=== PATIENT | female | born 1950 | race Caucasian/White ===

== ENCOUNTER → 2016-10-23 | Day surgery (SDC) | payer MEDICARE, MEDICAID ==
[~2016-10-23] VITALS: Ht 167.6 cm; Wt 40.0 kg
[~2016-10-23] MED LIST: COMBIVENT RESPIM4 GM INH; DIOVAN160 MG PO; OXYGEN M-15 INH; PERCOCET 5-3251 EACH PO; SINGULAIR10 MG PO; STAY AWAKE200 MG PO; XANAX0.5 MG PO; ZENPEP DR 10,01 EACH PO; ZOCOR40 MG PO
--- NOTE | ~2016-10-23 | OR ---
PATIENT'S NAME: AMIRA ADDISON [facility] AGE: 66 Y [address] ROOM: [place] [address] LOCATION: GEND ADMIT DATE: 10/23/2016 OR/Procedure Report DISCHARGE DATE: FAMILY PHYSICIAN: Tay Paz ATTENDING PHYSICIAN: YUDY AVALOS SURGEON: Yudy Avalos MD DATE OF PROCEDURE: 10/23/2016 PROCEDURE AUCTIONEER TOBACCO: Roselia Cannon, spray technician. PROCEDURES PERFORMED: 1. Bronchoscopy with therapeutic aspiration of secretions. 2. Bronchoscopy with bronchial wash of the left lower lobe. 3. Bronchoscopy with bronchoalveolar lavage of the left lower lobe. INDICATIONS AND PREPROCEDURE DIAGNOSES: 1. Left lower lung atelectasis. 2. Recurrent episodes of pneumonia. 3. Chronic obstructive pulmonary disease. 4. Tobacco abuse. POSTPROCEDURE DIAGNOSES: 1. Left lower lung atelectasis due to mucus plugging. 2. Recurrent episodes of pneumonia. 3. Chronic obstructive pulmonary disease. 4. Tobacco abuse. CONSENT: Consent was obtained from the patient after all the indications, risks, benefits, and alternatives were explained at length. 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 Ellison. The patient could not travel to Dr. Ellison's office for the procedure, reason for which he asked me whether I could do it in our facility. I agreed, and the patient agreed to it., too She verbalized understanding and signed the informed consent. DESCRIPTION OF PROCEDURE: The patient was taken to the endoscopy suite where a laryngeal mask was placed by the anesthesia team uneventfully. The bronchoscope was advanced through the laryngeal mask and the airways were examined. FINDINGS: The vocal cords had normal appearance. There was a moderate amount of secretions in the right lower lobe with a small amount of secretions in the right upper lobe. The patient had evidence of very large amount of thick, light-yellow secretions in the left lower lobe. I performed a bronchial wash from that area. Afterwards, I performed aggressive suctioning of all the PATIENT'S NAME: AMIRA ADDISON [facility] AGE: 66 Y [address] ROOM: [place] [address] LOCATION: GEND ADMIT DATE: 10/23/2016 OR/Procedure Report DISCHARGE DATE: FAMILY PHYSICIAN: Tay Paz ATTENDING PHYSICIAN: YUDY AVALOS secretions using multiple saline aliquots. In the left lower lobe, she had secretions down to the sub-, subsegmental level. There was no evidence of any endobronchial lesions in both bronchial trees. She had some airway anatomy distortion in the left lower lobe which raised the possibility of extrinsic compression. This could be related to lung atelectasis as well. Afterwards I performed a bronchoalveolar lavage in the left lower lobe. 60 mL of sterile saline were instilled, with return of 20 mL of cloudy, slightly purulent material. At the end of the procedure, there was no evidence of active bleeding or any mucus in the airways. The bronchoscope was withdrawn, and the patient was returned to the anesthesia team for further management. COMPLICATIONS: None. ESTIMATED BLOOD LOSS: None. SPECIMENS: The bronchoalveolar lavage will be sent for microbiology and cytology studies, and the bronchial wash will be sent for microbiology studies. MD CODY FLORES/modl /[id number] d: 10/23/16 1319 t: 10/26/16 1245, OPERATIVE SUMMARY
== END | disposition disaster alternative care site (69) ==
LOC: GPOC 10-22 14:00 → GEND 07:47 → GPOC 08:00
PROC: 0B9J8ZX Drainage of Left Lower Lung Lobe, Via Natural or Artificial Opening Endoscopic, Diagnostic (ICD-10-PCS; principal; 2016-10-23)
PROC: 0B9B8ZX Drainage of Left Lower Lobe Bronchus, Via Natural or Artificial Opening Endoscopic, Diagnostic (ICD-10-PCS; 2016-10-23)
PROC: 0BCB8ZZ Extirpation of Matter from Left Lower Lobe Bronchus, Via Natural or Artificial Opening Endoscopic (ICD-10-PCS; 2016-10-23)
DX: J98.11 Atelectasis (principal); J18.8 Other pneumonia, unspecified organism; J44.9 Chronic obstructive pulmonary disease, unspecified; J96.10 Chronic respiratory failure, unspecified whether with hypoxia or hypercapnia; I12.9 Hypertensive chronic kidney disease with stage 1 through stage 4 chronic kidney disease, or unspecified chronic kidney disease; N18.9 Chronic kidney disease, unspecified; F41.9 Anxiety disorder, unspecified; F17.210 Nicotine dependence, cigarettes, uncomplicated; Z86.73 Personal history of transient ischemic attack (TIA), and cerebral infarction without residual deficits; Z88.8 Allergy status to other drugs, medicaments and biological substances
CPT/HCPCS: J2001; J7030